=== PATIENT | male | born 1950 | race Caucasian/White ===

== ENCOUNTER 2017-11-22 13:33 | Emergency (ER) | payer OTHER, MEDICARE ==
[~2017-11-22] VITALS: Ht 188 cm; Wt 120.0 kg
[~2017-11-22 13:33] MED LIST: AMLODIPINE10 MG PO; BABY ASPIRIN81 MG PO; CLONIDINE0.2 MG PO; FISH OIL1000 MG PO; FLEXERIL PO; FLOMAX0.4 M1 PO; FLUZONE SPLT1 M1 IM; GLIPIZIDE10 M3 PO; GLYBURIDE2.5 MG PO; HYDROCHLOROT25 MG PO; LANTUS SOLOSTAR; LISINOPRIL20 MG PO; MELOXICAM7.5 MG PO; METFORMIN HCL1000 MG OR; METOPROL TAR100 MG PO; MULTIVITAMI1 OR; NITRO-DUR0.4 MG/HR; PRILOSEC20 MG PO; PROAIR HFA IN; SAW PALMETT4 OR
[2017-11-22] MEDS ORDERED: CEPHALEXIN500 M1 PO (14:51)
[2017-11-22 15:05] VITALS: BP 138/65
== END 2017-11-22 15:10 | disposition home or self-care (01) | DRG 605 ==
LOC: ED 13:33
PROC: 0HQFXZZ Repair Right Hand Skin, External Approach (ICD-10-PCS; principal; 2017-11-22)
DX: S61.011A Laceration without foreign body of right thumb without damage to nail, initial encounter (principal); E11.9 Type 2 diabetes mellitus without complications; I10 Essential (primary) hypertension; W26.0XXA Contact with knife, initial encounter; Y92.009 Unspecified place in unspecified non-institutional (private) residence as the place of occurrence of the external cause; Z95.1 Presence of aortocoronary bypass graft; Z85.9 Personal history of malignant neoplasm, unspecified; Z92.21 Personal history of antineoplastic chemotherapy

== ENCOUNTER 2018-09-03 13:41 | Emergency (ER) | payer OTHER, MEDICARE ==
[~2018-09-03] VITALS: Ht 188 cm; Wt 100.0 kg
[~2018-09-03 13:41] MED LIST changes: +CEPHALEXIN500 M1 PO
[2018-09-03 14:35] LABS: BUN 17 mg/dL (8-23); BUN/CREATININE RATIO 15 (12-20 (CALC)); CARBON DIOXIDE 27 mmol/l (22-30); CHLORIDE 108 mmol/l (95-108); CREATININE 1.1 mg/dL (0.7-1.3); GFR > 60 ML/MIN (>=60 (CALC)); GFR FOR AFR.AMER. > 60 ML/MIN (>=60 (CALC)); IMMATURE GRANULOCYTES 0.3 % (0.0-5.0); MEAN CORPUSCULAR HGB 27.5 pG CALC (26.0-32.0); NEUT# 7.48 thou/uL (1.82-7.42); RED BLOOD COUNT 3.78 mill/uL (4.70-6.10); SODIUM 145 mmol/l (137-146)
[2018-09-03 14:36] LABS: ANION GAP 13 (6-22 (CALC)); HEMATOCRIT 32.5 % (39.0-50.0); HEMOGLOBIN 10.4 g/dl (14.0-18.0); POTASSIUM 3.3 mmol/l (3.5-5.1)
[2018-09-03] MEDS ORDERED: LIPITOR20 MG PO (16:04)
[2018-09-03] MEDS ORDERED: B121000 MCG PO (16:05)
[2018-09-03] MEDS ORDERED: ASPIRIN81 MG PO (16:06)
[2018-09-03] MEDS ORDERED: SM ALLERGY50 MCG/ACT (16:08)
[2018-09-03] MEDS ORDERED: FUROSEMIDE20 MG PO (16:08)
[2018-09-03] MEDS ORDERED: GLIPIZIDE5 MG PO (16:10)
[2018-09-03] MEDS ORDERED: PANTOPRAZOLE SO40 MG PO (16:12)
[2018-09-03] MEDS ORDERED: PROAIR HFA108 MCG/AC (16:13)
[2018-09-03] MEDS ORDERED: TAMSULOSIN HCL0.4 MG PO (16:13)
[2018-09-03] MEDS ORDERED: TASIGNA200 MG PO (16:13)
[2018-09-03] MEDS ORDERED: KLOR-CON M1010 MEQ PO (16:13)
[2018-09-03 17:37] VITALS: BP 165/80
== END 2018-09-03 17:36 | disposition short-term general hospital (02) | DRG 186 ==
LOC: ED 13:41
PROVIDERS: Family Medicine
DX: J90 Pleural effusion, not elsewhere classified (principal); J18.1 Lobar pneumonia, unspecified organism; C95.90 Leukemia, unspecified not having achieved remission; E11.9 Type 2 diabetes mellitus without complications; I10 Essential (primary) hypertension

== ENCOUNTER 2018-10-15 14:52 | Emergency (ER) | payer OTHER, MEDICARE ==
[~2018-10-15] VITALS: Ht 188 cm; Wt 104.0 kg
[~2018-10-15 14:52] MED LIST changes: +ASPIRIN81 MG PO; +B121000 MCG PO; +FUROSEMIDE20 MG PO; +GLIPIZIDE5 MG PO; +KLOR-CON M1010 MEQ PO; +LIPITOR20 MG PO; +PANTOPRAZOLE SO40 MG PO; +PROAIR HFA108 MCG/AC; +SM ALLERGY50 MCG/ACT; +TAMSULOSIN HCL0.4 MG PO; +TASIGNA200 MG PO
[2018-10-15] MEDS ORDERED: KEFLEX500 M1 PO (16:20)
[2018-10-15 16:25] VITALS: BP 137/77
[2018-10-15] MEDS ORDERED: ALDACTONE25 MG PO (16:29)
[2018-10-15] MEDS ORDERED: LOPRESSOR25 M1 PO (16:30)
[2018-10-15] MEDS ORDERED: METFORMIN500 M2 PO (16:31)
[2018-10-15] MEDS ORDERED: GLIPIZIDE5 M2 PO (16:31)
[2018-10-15] MEDS ORDERED: ATORVASTATIN CA40 MG PO (16:32)
[2018-10-15] MEDS ORDERED: AMLODIPINE BESY10 MG PO (16:33)
== END 2018-10-15 16:25 | disposition home or self-care (01) | DRG 605 ==
LOC: ED 14:52
PROC: 0HQFXZZ Repair Right Hand Skin, External Approach (ICD-10-PCS; principal; 2018-10-15)
DX: S61.411A Laceration without foreign body of right hand, initial encounter (principal); W26.0XXA Contact with knife, initial encounter; Y93.89 Activity, other specified; Y92.009 Unspecified place in unspecified non-institutional (private) residence as the place of occurrence of the external cause

== ENCOUNTER 2019-06-20 10:56 | Observation (INO) | payer OTHER, MEDICARE ==
[~2019-06-20] VITALS: Ht 188 cm; Wt 112.0 kg
[~2019-06-20 10:56] MED LIST changes: +ALDACTONE25 MG PO; +AMLODIPINE BESY10 MG PO; +ATORVASTATIN CA40 MG PO; +GLIPIZIDE5 M2 PO; +KEFLEX500 M1 PO; +LOPRESSOR25 M1 PO; +METFORMIN500 M2 PO
--- NOTE | 2019-06-20 11:00 | NUR ---
PT BROUGHT BACK TO ER PER W/C
--- NOTE | 2019-06-20 11:17 | NUR ---
SECOND 0.3MG EPI GIVEN IM IN LEFT ARM PER ISAC CONKLIN AT BEDSIDE
[2019-06-20 11:37] LABS: HEMATOCRIT 33.8 % (39.0-50.0); HEMOGLOBIN 10.9 g/dl (14.0-18.0); IMMATURE GRANULOCYTES 0.7 % (0.0-5.0); MEAN CELL VOLUME 83.9 fL CALC (80.0-100.0); MEAN CORPUSCULAR HGB CONC 32.2 g/L CALC (32.0-36.0); NEUT# 9.21 thou/uL (1.82-7.42); RED BLOOD COUNT 4.03 mill/uL (4.70-6.10); RED CELL DISTRI WIDTH 15.9 % (11.5-15.5)
--- NOTE | 2019-06-20 11:38 | NUR ---
PT PROVIDED MEDS ORDERED FOR ALLERGIC REACTION, STATES THAT HE IS BEGINNING TO FEEL THEIR EFFECT. AT BEDSIDE.
[2019-06-20 11:50] LABS: ANION GAP 13 (6-22 (CALC)); BUN 32 mg/dL (8-23); BUN/CREATININE RATIO 28 (12-20 (CALC)); CARBON DIOXIDE 28 mmol/l (22-30); CHLORIDE 101 mmol/l (95-108); CREATININE 1.1 mg/dL (0.7-1.3); GFR > 60 ML/MIN (>=60 (CALC)); GFR FOR AFR.AMER. > 60 ML/MIN (>=60 (CALC)); POTASSIUM 3.8 mmol/l (3.5-5.1); SODIUM 139 mmol/l (137-146)
[2019-06-20] MEDS ORDERED: B121000 MCG PO (12:23)
[2019-06-20] MEDS ORDERED: FLOVENT HF110 MCG/AC IN (12:27)
[2019-06-20] MEDS ORDERED: MULTI VIT PO (12:32)
[2019-06-20] MEDS ORDERED: PROAIR HFA108 MCG/AC IN (12:34)
[2019-06-20] MEDS ORDERED: TORSEMIDE20 M1 PO (12:34)
[2019-06-20 12:50] VITALS: BP 182/100
--- NOTE | 2019-06-20 12:58 | NUR ---
SUBSEQUENT EKG ORDERED REVEAL ACUTE GA. EDP AWARE, TRANSFER PLANS IN PROGRESS.
--- NOTE | 2019-06-20 13:05 | NUR ---
AEROMED HERE TO TRANSPORT PT TO [facility] RENTAL COUNTER CLERK.
--- NOTE | 2019-06-20 13:21 | NUR ---
Transfer Information Transferred To: [facility] MACHINE BUILDER Report Given to: LEYLA Transported by: [facility] X Air Other Transported with: Nurse Transporter X Patent IV X O2 X Newswriter
== END 2019-06-20 13:10 | disposition short-term general hospital (02) | DRG 281 ==
LOC: ED 10:56 → ED-I 11:58 → ED 12:11 → ICU 12:12
PROVIDERS: Family Medicine; ADMIT Internal Medicine; ATTEND Internal Medicine
DX: I21.3 ST elevation (STEMI) myocardial infarction of unspecified site (principal); C95.90 Leukemia, unspecified not having achieved remission; T78.3XXA Angioneurotic edema, initial encounter; E11.9 Type 2 diabetes mellitus without complications; I11.0 Hypertensive heart disease with heart failure; I50.9 Heart failure, unspecified; Z95.1 Presence of aortocoronary bypass graft; Z79.84 Long term (current) use of oral hypoglycemic drugs; Z79.899 Other long term (current) drug therapy

== ENCOUNTER 2019-11-08 | Emergency (ER) | payer OTHER, MEDICARE ==
[~2019-11-08] MED LIST changes: +FLOVENT HF110 MCG/AC IN; +MULTI VIT PO; +PROAIR HFA108 MCG/AC IN; +TORSEMIDE20 M1 PO
[2019-11-08 20:04] LABS: HEMATOCRIT 34.7 % (39.0-50.0); HEMOGLOBIN 11.3 g/dl (14.0-18.0); IMMATURE GRANULOCYTES 0.3 % (0.0-5.0); MEAN CELL VOLUME 84.2 fL CALC (80.0-100.0); MEAN CORPUSCULAR HGB 27.4 pG CALC (26.0-32.0); MEAN CORPUSCULAR HGB CONC 32.6 g/L CALC (32.0-36.0); NEUT# 5.01 thou/uL (1.82-7.42); RED BLOOD COUNT 4.12 mill/uL (4.70-6.10); RED CELL DISTRI WIDTH 15.2 % (11.5-15.5)
[2019-11-08 20:37] LABS: ALBUMIN 4.6 g/dL (3.2-5.0); ALKALINE PHOSPHATASE 123 u/l (38-126); ANION GAP 19 (6-22 (CALC)); BILIRUBIN, TOTAL 0.3 mg/dL (0.0-1.4); BUN 30 mg/dL (8-23); BUN/CREATININE RATIO 21 (12-20 (CALC)); CARBON DIOXIDE 23 mmol/l (22-30); CHLORIDE 103 mmol/l (95-108); CREATININE 1.4 mg/dL (0.7-1.3); GFR 50 ML/MIN (>=60 (CALC)); GFR FOR AFR.AMER. 60 ML/MIN (>=60 (CALC)); POTASSIUM 4.3 mmol/l (3.5-5.1); SGOT/AST 24 u/l (19-48); SODIUM 141 mmol/l (137-146); TOTAL PROTEIN 7.6 g/dL (6.3-8.2)
[2019-11-08] MEDS ORDERED: COREG25 MG PO (20:39)
[2019-11-08] MEDS ORDERED: SYMBICORT 80-4.5MCG IN (20:39)
[2019-11-08] MEDS ORDERED: CETIRIZINE10 MG PO (20:40)
[2019-11-08] MEDS ORDERED: CLONIDINE0.1 MG PO (20:41)
[2019-11-08] MEDS ORDERED: JARDIANCE25 MG PO (20:42)
[2019-11-08] MEDS ORDERED: ALLERGY NA50 MCG/ACT NAB (20:43)
[2019-11-08] MEDS ORDERED: APRESOLINE25 MG/TAB PO (20:44)
[2019-11-08] MEDS ORDERED: MONTELUKAST SOD10 MG PO (20:45)
[2019-11-08 20:49] LABS: MYOGLOBIN 53 ng/mL (0 - 121)
[2019-11-08 21:08] LABS: URINE BILIRUBIN - DIPSTICK NEGATIVE (NEGATIVE); URINE BLOOD DIPSTICK NEGATIVE (NEGATIVE); URINE COLOR YELLOW; URINE GLUCOSE - DIPSTICK >=1000 mg/dL (NEGATIVE); URINE KETONE NEGATIVE (NEGATIVE); URINE LEUK ESTERASE NEGATIVE (NEGATIVE); URINE NITRITE - DIPSTICK NEGATIVE (Negative); URINE PROTEIN - DIPSTICK TRACE mg/dL (NEG-TRACE); URINE UROBILINOGEN - DIPSTICK 0.2 E.U./dL (0.2)
[2019-11-08] MEDS ORDERED: CODEINE/GUAIFEN1 SOL PO (22:10)
[2019-11-08] MEDS ORDERED: AUGMENTIN500TAB PO (22:10)
== END 2019-11-08 22:25 | disposition home or self-care (01) | DRG 202 ==
PROVIDERS: Emergency Medicine
DX: J20.9 Acute bronchitis, unspecified (principal); E87.2 Acidosis; I11.0 Hypertensive heart disease with heart failure; I50.9 Heart failure, unspecified; E11.9 Type 2 diabetes mellitus without complications; Z79.84 Long term (current) use of oral hypoglycemic drugs

== ENCOUNTER 2020-02-16 09:34 | Observation (INO) | payer OTHER, MEDICARE ==
[~2020-02-16] VITALS: Ht 182.9 cm; Wt 114.1 kg
[~2020-02-16 09:34] MED LIST changes: +ALLERGY NA50 MCG/ACT NAB; +APRESOLINE25 MG/TAB PO; +AUGMENTIN500TAB PO; +CETIRIZINE10 MG PO; +CLONIDINE0.1 MG PO; +CODEINE/GUAIFEN1 SOL PO; +COREG25 MG PO; +JARDIANCE25 MG PO; +MONTELUKAST SOD10 MG PO; +SYMBICORT 80-4.5MCG IN
[2020-02-16 10:54] LABS: PROTHROMBIN TIME 10.2 SECONDS (9.0-12.5)
[2020-02-16 10:56] LABS: LIPASE 115 u/l (23-300)
[2020-02-16] MEDS ORDERED: APRESOLINE25 MG/TAB PO (11:01)
[2020-02-16 11:06] LABS: ALBUMIN 4.2 g/dL (3.2-5.0); CREATININE 1.4 mg/dL (0.7-1.3); HEMATOCRIT 34.4 % (39.0-50.0); HEMOGLOBIN 10.7 g/dl (14.0-18.0); IMMATURE GRANULOCYTES 0.3 % (0.0-5.0); MEAN CELL VOLUME 81.1 fL CALC (80.0-100.0); MEAN CORPUSCULAR HGB 25.2 pG CALC (26.0-32.0); MEAN CORPUSCULAR HGB CONC 31.1 g/dL CAL (32.0-36.0); NEUT# 7.15 thou/uL (1.82-7.42); POTASSIUM 4.4 mmol/l (3.5-5.1); RED BLOOD COUNT 4.24 mill/uL (4.70-6.10); RED CELL DISTRI WIDTH 16.6 % (11.5-15.5); TOTAL PROTEIN 6.8 g/dL (6.3-8.2)
[2020-02-16 11:07] LABS: BILIRUBIN, TOTAL 0.5 mg/dL (0.0-1.4)
[2020-02-16] MEDS ORDERED: SPIRIVA HANDIH18 MCG PO (11:11)
[2020-02-16 11:31] LABS: URINE BILIRUBIN - DIPSTICK NEGATIVE (NEGATIVE); URINE BLOOD DIPSTICK NEGATIVE (NEGATIVE); URINE COLOR YELLOW; URINE GLUCOSE - DIPSTICK 500 mg/dL (NEGATIVE); URINE KETONE NEGATIVE (NEGATIVE); URINE LEUK ESTERASE NEGATIVE (NEGATIVE); URINE NITRITE - DIPSTICK NEGATIVE (Negative); URINE PROTEIN - DIPSTICK NEGATIVE (NEG-TRACE); URINE SPECIFIC GRAVITY 1.025; URINE UROBILINOGEN - DIPSTICK 0.2 E.U./dL (0.2)
[2020-02-16 14:30] VITALS: BP 138/65
[2020-02-16 17:32] VITALS: BP 158/76
[2020-02-16 20:17] VITALS: BP 164/71
[2020-02-17 00:15] VITALS: BP 164/77
[2020-02-17 00:22] VITALS: BP 158/72
[2020-02-17 04:40] VITALS: BP 150/68
[2020-02-17 05:36] LABS: HEMATOCRIT 34.9 % (39.0-50.0); HEMOGLOBIN 10.8 g/dl (14.0-18.0); IMMATURE GRANULOCYTES 0.3 % (0.0-5.0); MEAN CELL VOLUME 80.4 fL CALC (80.0-100.0); MEAN CORPUSCULAR HGB 24.9 pG CALC (26.0-32.0); MEAN CORPUSCULAR HGB CONC 30.9 g/dL CAL (32.0-36.0); NEUT# 6.48 thou/uL (1.82-7.42); RED BLOOD COUNT 4.34 mill/uL (4.70-6.10); RED CELL DISTRI WIDTH 16.4 % (11.5-15.5)
[2020-02-17 05:54] LABS: ALBUMIN 4.1 g/dL (3.2-5.0); ALKALINE PHOSPHATASE 123 u/l (38-126); ANION GAP 14 (6-22 (CALC)); BILIRUBIN, TOTAL 0.3 mg/dL (0.0-1.4); BUN 27 mg/dL (8-23); BUN/CREATININE RATIO 21 (12-20 (CALC)); CARBON DIOXIDE 26 mmol/l (22-30); CHLORIDE 103 mmol/l (95-108); CREATININE 1.3 mg/dL (0.7-1.3); GFR 54 ML/MIN (>=60 (CALC)); GFR FOR AFR.AMER. > 60 ML/MIN (>=60 (CALC)); POTASSIUM 3.9 mmol/l (3.5-5.1); SGOT/AST 19 u/l (19-48); SODIUM 138 mmol/l (137-146); TOTAL PROTEIN 6.7 g/dL (6.3-8.2)
[2020-02-17 08:11] VITALS: BP 143/76
[2020-02-17 10:59] VITALS: BP 160/86
[2020-02-17] MEDS ORDERED: LEVAQUIN750 MG PO (11:44)
[2020-02-17 15:27] VITALS: BP 142/80
== END 2020-02-17 16:07 | disposition home or self-care (01) | DRG 194 ==
LOC: ED 09:34 → ED-I 12:40 → ED 13:13 → ED-I 13:14 → MS2 13:14
PROVIDERS: Nurse Practitioner Family; ADMIT Internal Medicine; ATTEND Internal Medicine
DX: J18.9 Pneumonia, unspecified organism (principal); C95.90 Leukemia, unspecified not having achieved remission; E87.2 Acidosis; I11.0 Hypertensive heart disease with heart failure; I50.9 Heart failure, unspecified; E86.0 Dehydration; E11.9 Type 2 diabetes mellitus without complications; R00.1 Bradycardia, unspecified; Z79.899 Other long term (current) drug therapy; Z95.1 Presence of aortocoronary bypass graft; Z79.84 Long term (current) use of oral hypoglycemic drugs; Z20.828 Contact with and (suspected) exposure to other viral communicable diseases; Z99.81 Dependence on supplemental oxygen
CPT/HCPCS: G0378; Q9967

== ENCOUNTER 2020-11-06 15:02 | Emergency (ER) | payer OTHER, MEDICARE ==
[~2020-11-06] VITALS: Ht 182.9 cm; Wt 109.0 kg
[~2020-11-06 15:02] MED LIST changes: +LEVAQUIN750 MG PO; +SPIRIVA HANDIH18 MCG PO
[2020-11-06 15:48] LABS: HEMATOCRIT 40.1 % (39.0-50.0); HEMOGLOBIN 12.1 g/dl (14.0-18.0); IMMATURE GRANULOCYTES 0.3 % (0.0-5.0); MEAN CORPUSCULAR HGB 24.4 pG CALC (26.0-32.0); MEAN CORPUSCULAR HGB CONC 30.2 g/dL CAL (32.0-36.0); NEUT# 6.1 thou/uL (1.82-7.42); RED BLOOD COUNT 4.95 mill/uL (4.70-6.10); RED CELL DISTRI WIDTH 17.3 % (11.5-15.5)
[2020-11-06 16:09] LABS: ALBUMIN 4.6 g/dL (3.2-5.0); ALKALINE PHOSPHATASE 147 u/l (38-126); ANION GAP 18 (6-22 (CALC)); BUN 35 mg/dL (8-23); BUN/CREATININE RATIO 17 (12-20 (CALC)); CARBON DIOXIDE 24 mmol/l (22-30); CHLORIDE 101 mmol/l (95-108); GFR 33 ML/MIN (>=60 (CALC)); GFR FOR AFR.AMER. 40 ML/MIN (>=60 (CALC)); POTASSIUM 4.5 mmol/l (3.5-5.1); SGOT/AST 25 u/l (19-48); SODIUM 138 mmol/l (137-146); TOTAL PROTEIN 7.9 g/dL (6.3-8.2)
[2020-11-06 16:10] LABS: BILIRUBIN, TOTAL 0.6 mg/dL (0.0-1.4)
[2020-11-06 16:50] LABS: URINE BILIRUBIN - DIPSTICK NEGATIVE (NEGATIVE); URINE BLOOD DIPSTICK NEGATIVE (NEGATIVE); URINE COLOR YELLOW; URINE GLUCOSE - DIPSTICK >=1000 mg/dL (NEGATIVE); URINE KETONE NEGATIVE (NEGATIVE); URINE LEUK ESTERASE NEGATIVE (NEGATIVE); URINE NITRITE - DIPSTICK NEGATIVE (Negative); URINE PROTEIN - DIPSTICK NEGATIVE (NEG-TRACE); URINE SPECIFIC GRAVITY 1.015; URINE UROBILINOGEN - DIPSTICK 0.2 E.U./dL (0.2)
[2020-11-06 17:33] VITALS: BP 144/71
== END 2020-11-06 17:43 | disposition left against medical advice (07) | DRG 309 ==
LOC: ED 15:02
PROVIDERS: Family Medicine
DX: R00.2 Palpitations (principal); R94.31 Abnormal electrocardiogram [ECG] [EKG]; R07.9 Chest pain, unspecified; R06.02 Shortness of breath; C95.91 Leukemia, unspecified, in remission; E11.9 Type 2 diabetes mellitus without complications; I10 Essential (primary) hypertension; Z91.19 Patient's noncompliance with other medical treatment and regimen; Z85.51 Personal history of malignant neoplasm of bladder; Z79.84 Long term (current) use of oral hypoglycemic drugs; Z20.822 Contact with and (suspected) exposure to COVID-19

== ENCOUNTER 2020-11-17 09:36 | Emergency (ER) | payer OTHER, MEDICARE ==
[~2020-11-17] VITALS: Ht 182.9 cm; Wt 104.0 kg
[2020-11-17 10:33] LABS: HEMATOCRIT 36.2 % (39.0-50.0); HEMOGLOBIN 11.1 g/dl (14.0-18.0); IMMATURE GRANULOCYTES 0.3 % (0.0-5.0); MEAN CELL VOLUME 80.8 fL CALC (80.0-100.0); MEAN CORPUSCULAR HGB 24.8 pG CALC (26.0-32.0); MEAN CORPUSCULAR HGB CONC 30.7 g/dL CAL (32.0-36.0); NEUT# 8.54 thou/uL (1.82-7.42); RED BLOOD COUNT 4.48 mill/uL (4.70-6.10); RED CELL DISTRI WIDTH 17.1 % (11.5-15.5)
[2020-11-17 10:49] LABS: ALBUMIN 4.4 g/dL (3.2-5.0); ALKALINE PHOSPHATASE 123 u/l (38-126); ANION GAP 13 (6-22 (CALC)); BILIRUBIN, TOTAL 0.7 mg/dL (0.0-1.4); BUN 27 mg/dL (8-23); BUN/CREATININE RATIO 18 (12-20 (CALC)); CARBON DIOXIDE 26 mmol/l (22-30); CHLORIDE 105 mmol/l (95-108); CREATININE 1.5 mg/dL (0.7-1.3); GFR 46 ML/MIN (>=60 (CALC)); GFR FOR AFR.AMER. 56 ML/MIN (>=60 (CALC)); POTASSIUM 4.1 mmol/l (3.5-5.1); SGOT/AST 27 u/l (19-48); SODIUM 140 mmol/l (137-146); TOTAL PROTEIN 7.4 g/dL (6.3-8.2)
[2020-11-17] MEDS ORDERED: ZITHROMAX250 MG PO (12:16)
[2020-11-17 12:39] LABS: URINE BILIRUBIN - DIPSTICK NEGATIVE (NEGATIVE); URINE BLOOD DIPSTICK NEGATIVE (NEGATIVE); URINE COLOR YELLOW; URINE GLUCOSE - DIPSTICK >=1000 mg/dL (NEGATIVE); URINE KETONE NEGATIVE (NEGATIVE); URINE LEUK ESTERASE NEGATIVE (NEGATIVE); URINE NITRITE - DIPSTICK NEGATIVE (Negative); URINE PH 5.5 (4.5-8.0); URINE PROTEIN - DIPSTICK NEGATIVE (NEG-TRACE); URINE SPECIFIC GRAVITY 1.015; URINE UROBILINOGEN - DIPSTICK 0.2 E.U./dL (0.2)
[2020-11-17 14:12] VITALS: BP 154/73
== END 2020-11-17 14:13 | disposition home or self-care (01) | DRG 308 ==
LOC: ED 09:36
PROVIDERS: Emergency Medicine
DX: I49.3 Ventricular premature depolarization (principal); J18.9 Pneumonia, unspecified organism; C95.91 Leukemia, unspecified, in remission; E11.9 Type 2 diabetes mellitus without complications; I10 Essential (primary) hypertension; E78.00 Pure hypercholesterolemia, unspecified; Z85.51 Personal history of malignant neoplasm of bladder; Z79.84 Long term (current) use of oral hypoglycemic drugs; Z20.822 Contact with and (suspected) exposure to COVID-19

== ENCOUNTER 2021-07-21 06:36 | Emergency (ER) | payer OTHER, MEDICARE ==
[~2021-07-21] VITALS: Ht 182.9 cm; Wt 114.0 kg
[~2021-07-21 06:36] MED LIST changes: +ZITHROMAX250 MG PO
[2021-07-21] MEDS ORDERED: ISORDIL10 MG PO (07:09)
[2021-07-21 08:33] LABS: IMMATURE GRANULOCYTES 0.2 % (0.0-5.0); MEAN CORPUSCULAR HGB 27.9 pG CALC (26.0-32.0); MEAN CORPUSCULAR HGB CONC 31.7 g/dL CAL (32.0-36.0); NEUT# 8.93 thou/uL (1.82-7.42); RED BLOOD COUNT 5.26 mill/uL (4.70-6.10); RED CELL DISTRI WIDTH 15.1 % (11.5-15.5)
[2021-07-21 08:37] LABS: HEMATOCRIT 46.3 % (39.0-50.0); HEMOGLOBIN 14.7 g/dl (14.0-18.0)
[2021-07-21 08:41] LABS: ALBUMIN 4.3 g/dL (3.2-5.0); BILIRUBIN, TOTAL 0.5 mg/dL (0.0-1.4); CREATININE 1.5 mg/dL (0.7-1.3); POTASSIUM 3.9 mmol/l (3.5-5.1); TOTAL PROTEIN 7.5 g/dL (6.3-8.2)
[2021-07-21] MEDS ORDERED: DECADRON4 M1 PO (11:51)
[2021-07-21 12:36] VITALS: BP 161/82
== END 2021-07-21 12:38 | disposition home or self-care (01) | DRG 916 ==
LOC: ED 06:36
PROVIDERS: Family Medicine
DX: T78.3XXA Angioneurotic edema, initial encounter (principal); C95.91 Leukemia, unspecified, in remission; E11.9 Type 2 diabetes mellitus without complications; I10 Essential (primary) hypertension; E78.00 Pure hypercholesterolemia, unspecified; Z85.51 Personal history of malignant neoplasm of bladder; Z79.84 Long term (current) use of oral hypoglycemic drugs

== ENCOUNTER 2021-10-16 11:12 | Emergency (ER) | payer OTHER, MEDICARE ==
[~2021-10-16] VITALS: Ht 182.9 cm; Wt 111.0 kg
[~2021-10-16 11:12] MED LIST changes: +DECADRON4 M1 PO; +ISORDIL10 MG PO
[2021-10-16] MEDS ORDERED: ULTRAM50 M1 PO (14:38)
[2021-10-16] MEDS ORDERED: CYCLOBENZAPRINE10 MG PO (14:38)
[2021-10-16 15:24] VITALS: BP 178/74
== END 2021-10-16 15:24 | disposition home or self-care (01) | DRG 552 ==
LOC: ED 11:12
DX: M47.26 Other spondylosis with radiculopathy, lumbar region (principal); C95.91 Leukemia, unspecified, in remission; E11.9 Type 2 diabetes mellitus without complications; I10 Essential (primary) hypertension; E78.00 Pure hypercholesterolemia, unspecified; Z85.51 Personal history of malignant neoplasm of bladder; Z79.84 Long term (current) use of oral hypoglycemic drugs

== ENCOUNTER 2021-12-04 13:14 | Emergency (ER) | payer OTHER, MEDICARE ==
[~2021-12-04] VITALS: Ht 182.9 cm; Wt 110.0 kg
[2021-12-04] VITALS (8 sets, daily range): BP systolic 132–167; BP diastolic 62–89
[~2021-12-04 13:14] MED LIST changes: +CYCLOBENZAPRINE10 MG PO; +ULTRAM50 M1 PO
[2021-12-04 14:06] LABS: HEMATOCRIT 44.1 % (39.0-50.0); HEMOGLOBIN 14.2 g/dl (14.0-18.0); IMMATURE GRANULOCYTES 0.2 % (0.0-5.0); MEAN CELL VOLUME 89.3 fL CALC (80.0-100.0); MEAN CORPUSCULAR HGB 28.7 pG CALC (26.0-32.0); MEAN CORPUSCULAR HGB CONC 32.2 g/dL CAL (32.0-36.0); NEUT# 5.49 thou/uL (1.82-7.42); RED BLOOD COUNT 4.94 mill/uL (4.70-6.10); RED CELL DISTRI WIDTH 13.5 % (11.5-15.5)
[2021-12-04 14:18] LABS: ALBUMIN 3.8 g/dL (3.2-5.0); ALKALINE PHOSPHATASE 131 u/l (38-126); ANION GAP 14 (6-22 (CALC)); BILIRUBIN, TOTAL 0.3 mg/dL (0.0-1.4); BUN 33 mg/dL (8-23); BUN/CREATININE RATIO 26 (12-20 (CALC)); CARBON DIOXIDE 26 mmol/l (22-30); CHLORIDE 102 mmol/l (95-108); CREATININE 1.3 mg/dL (0.7-1.3); GFR 54 ML/MIN (>=60 (CALC)); GFR FOR AFR.AMER. > 60 ML/MIN (>=60 (CALC)); SGOT/AST 18 u/l (19-48); SODIUM 137 mmol/l (137-146); TOTAL PROTEIN 6.5 g/dL (6.3-8.2)
[2021-12-04 14:19] LABS: POTASSIUM 4.7 mmol/l (3.5-5.1)
[2021-12-04] MEDS ORDERED: LASIX 20 MG TAB20 MG PO (16:27)
== END 2021-12-04 16:55 | disposition home or self-care (01) | DRG 292 ==
LOC: ED 13:14
PROVIDERS: Family Medicine
DX: I11.0 Hypertensive heart disease with heart failure (principal); C95.91 Leukemia, unspecified, in remission; I50.9 Heart failure, unspecified; E11.9 Type 2 diabetes mellitus without complications; E78.00 Pure hypercholesterolemia, unspecified; Z95.1 Presence of aortocoronary bypass graft; Z85.51 Personal history of malignant neoplasm of bladder; Z20.822 Contact with and (suspected) exposure to COVID-19

== ENCOUNTER 2021-12-20 10:15 | Observation (INO) | payer OTHER, MEDICARE ==
[~2021-12-20] VITALS: Ht 182.9 cm; Wt 110.0 kg
[2021-12-20] VITALS (8 sets, daily range): BP systolic 134–162; BP diastolic 62–87
[~2021-12-20 10:15] MED LIST changes: +LASIX 20 MG TAB20 MG PO
[2021-12-20 10:35] LABS: HEMATOCRIT 42.6 % (39.0-50.0); HEMOGLOBIN 13.9 g/dl (14.0-18.0); IMMATURE GRANULOCYTES 0.2 % (0.0-5.0); MEAN CELL VOLUME 89.9 fL CALC (80.0-100.0); MEAN CORPUSCULAR HGB 29.3 pG CALC (26.0-32.0); MEAN CORPUSCULAR HGB CONC 32.6 g/dL CAL (32.0-36.0); NEUT# 7.21 thou/uL (1.82-7.42); RED BLOOD COUNT 4.74 mill/uL (4.70-6.10); RED CELL DISTRI WIDTH 13.2 % (11.5-15.5)
[2021-12-20 10:49] LABS: ALBUMIN 4.2 g/dL (3.2-5.0); ALKALINE PHOSPHATASE 122 u/l (38-126); ANION GAP 13 (6-22 (CALC)); BUN 27 mg/dL (8-23); BUN/CREATININE RATIO 21 (12-20 (CALC)); CARBON DIOXIDE 30 mmol/l (22-30); CHLORIDE 101 mmol/l (95-108); CREATININE 1.3 mg/dL (0.7-1.3); GFR 54 ML/MIN (>=60 (CALC)); GFR FOR AFR.AMER. > 60 ML/MIN (>=60 (CALC)); POTASSIUM 4.1 mmol/l (3.5-5.1); SGOT/AST 25 u/l (19-48); SODIUM 140 mmol/l (137-146); TOTAL PROTEIN 7.4 g/dL (6.3-8.2)
[2021-12-20 10:52] LABS: BILIRUBIN, TOTAL 0.5 mg/dL (0.0-1.4)
[2021-12-21 00:30] VITALS: BP 142/71
[2021-12-21 05:12] LABS: HEMATOCRIT 46.5 % (39.0-50.0); HEMOGLOBIN 15.4 g/dl (14.0-18.0); IMMATURE GRANULOCYTES 0.1 % (0.0-5.0); MEAN CELL VOLUME 88.7 fL CALC (80.0-100.0); MEAN CORPUSCULAR HGB 29.4 pG CALC (26.0-32.0); MEAN CORPUSCULAR HGB CONC 33.1 g/dL CAL (32.0-36.0); NEUT# 6.07 thou/uL (1.82-7.42); RED BLOOD COUNT 5.24 mill/uL (4.70-6.10); RED CELL DISTRI WIDTH 13.2 % (11.5-15.5)
[2021-12-21 05:19] VITALS: BP 146/59
[2021-12-21 05:26] LABS: ANION GAP 15 (6-22 (CALC)); BUN 26 mg/dL (8-23); BUN/CREATININE RATIO 23 (12-20 (CALC)); CARBON DIOXIDE 25 mmol/l (22-30); CHLORIDE 103 mmol/l (95-108); CREATININE 1.2 mg/dL (0.7-1.3); GFR 59 ML/MIN (>=60 (CALC)); GFR FOR AFR.AMER. > 60 ML/MIN (>=60 (CALC)); POTASSIUM 4.5 mmol/l (3.5-5.1); SODIUM 140 mmol/l (137-146)
[2021-12-21 08:00] VITALS: BP 166/80
[2021-12-21] MEDS ORDERED: AZITHROMYCIN500 MG PO (10:22)
[2021-12-21] MEDS ORDERED: MECLIZINE25 MG PO (10:24)
[2021-12-21 10:26] VITALS: BP 143/64
== END 2021-12-21 12:22 | disposition home or self-care (01) | DRG 194 ==
LOC: ED 10:15 → ED-I 11:01 → ED 11:47 → MS2 11:48
PROVIDERS: Family Medicine; Nurse Practitioner; ADMIT Internal Medicine; ATTEND Internal Medicine
DX: J18.9 Pneumonia, unspecified organism (principal); C92.00 Acute myeloblastic leukemia, not having achieved remission; R55 Syncope and collapse; R42 Dizziness and giddiness; I11.0 Hypertensive heart disease with heart failure; I50.9 Heart failure, unspecified; E11.9 Type 2 diabetes mellitus without complications; E78.00 Pure hypercholesterolemia, unspecified; Z85.51 Personal history of malignant neoplasm of bladder; Z79.84 Long term (current) use of oral hypoglycemic drugs; Z95.1 Presence of aortocoronary bypass graft; Z20.822 Contact with and (suspected) exposure to COVID-19
CPT/HCPCS: J1650

== ENCOUNTER 2022-03-26 13:30 | Emergency (ER) | payer OTHER, MEDICARE ==
[~2022-03-26] VITALS: Ht 182.9 cm; Wt 118.0 kg
[~2022-03-26 13:30] MED LIST changes: +AZITHROMYCIN500 MG PO; +MECLIZINE25 MG PO
[2022-03-26] MEDS ORDERED: AMOX/K CLAV875 M1 PO (14:21)
[2022-03-26 14:31] VITALS: BP 144/67
[2022-03-26 15:04] VITALS: BP 144/67
== END 2022-03-26 15:15 | disposition home or self-care (01) | DRG 605 ==
LOC: ED 13:30
DX: S61.451A Open bite of right hand, initial encounter (principal); I11.0 Hypertensive heart disease with heart failure; I50.9 Heart failure, unspecified; E11.9 Type 2 diabetes mellitus without complications; E78.00 Pure hypercholesterolemia, unspecified; Z79.84 Long term (current) use of oral hypoglycemic drugs; W54.0XXA Bitten by dog, initial encounter; Y93.89 Activity, other specified; Y92.830 Public park as the place of occurrence of the external cause

== ENCOUNTER 2022-04-14 10:08 | Observation (INO) | payer OTHER, MEDICARE ==
[2022-04-14] VITALS (17 sets, daily range): BP systolic 98–170; BP diastolic 62–102
[~2022-04-14] VITALS: Ht 182.9 cm; Wt 124.0 kg
[~2022-04-14 10:08] MED LIST changes: -AMLODIPINE BESY10 MG PO; +AMOX/K CLAV875 M1 PO; -GLIPIZIDE5 M2 PO; +NORVASC PO
--- NOTE | 2022-04-14 10:08 | NUR ---
PT TO ROOM VIA WC FROM HOME
[2022-04-14 10:39] LABS: HEMATOCRIT 36.6 % (39.0-50.0); HEMOGLOBIN 11.6 g/dl (14.0-18.0); IMMATURE GRANULOCYTES 0.1 % (0.0-5.0); MEAN CELL VOLUME 99.5 fL CALC (80.0-100.0); MEAN CORPUSCULAR HGB 31.5 pG CALC (26.0-32.0); MEAN CORPUSCULAR HGB CONC 31.7 g/dL CAL (32.0-36.0); NEUT# 5.26 thou/uL (1.82-7.42); RED BLOOD COUNT 3.68 mill/uL (4.70-6.10); RED CELL DISTRI WIDTH 14.9 % (11.5-15.5)
[2022-04-14 10:49] LABS: ALKALINE PHOSPHATASE 99 u/l (38-126); ANION GAP 9 (6-22 (CALC)); BUN 29 mg/dL (8-23); BUN/CREATININE RATIO 16 (12-20 (CALC)); CARBON DIOXIDE 30 mmol/l (22-30); CHLORIDE 106 mmol/l (95-108); CREATININE 1.8 mg/dL (0.7-1.3); GFR FOR AFR.AMER. 45 ML/MIN (>=60 (CALC)); GFR OTHER RACES 37 ML/MIN (>=60 (CALC)); POTASSIUM 4.2 mmol/l (3.5-5.1); SGOT/AST 25 u/l (19-48); SODIUM 141 mmol/l (137-146); TOTAL PROTEIN 6.5 g/dL (6.3-8.2)
[2022-04-14 10:51] LABS: BILIRUBIN, TOTAL 0.4 mg/dL (0.0-1.4)
--- NOTE | 2022-04-14 11:00 | NUR ---
Reassessment of patient completed. No distress noted.
--- NOTE | 2022-04-14 12:00 | NUR ---
Reassessment of patient completed. No distress noted.
--- NOTE | 2022-04-14 13:00 | NUR ---
Reassessment of patient completed. No distress noted.
--- NOTE | 2022-04-14 14:00 | NUR ---
Reassessment of patient completed. No distress noted.
--- NOTE | 2022-04-14 15:00 | NUR ---
Reassessment of patient completed. No distress noted.
--- NOTE | 2022-04-14 15:28 | NUR ---
PT ARRIVED FROM ED ACCOMPANIED BY MARI DALTON. PT A&O X3. NO DISTRESS NOTED. REPORTS IMPROVEMENT IN SYSMPTOMS. STANDING WEIGHT OBTAINED. CLEAR BREATH SOUNDS UPON AUSCULTATION. ACTIVE BOWEL SOUNDS X4 QUADRANTS. ABD DISTENDED AND FIRM; PT REPORTS LAST BM 04/13. PT A DIABETIC; TURKEY SANDWICH PROVIDED DUE TO LOW BLOOD SUGAR PT ASYMPTOMATIC, JUICE ALSO PROVIDED. +1 EDEMA NOTED TO BLE. PT HAS DRESSING TO LT BIG TOE; REPORTS "NAIL FALLS OFF AND REGROWS", DRESSING REMOVED UPON PTS REQUEST FOR INSPECTION, TOE NOTED TO BE SLIGHTLY RED IN APPEARANCE, PT DENIES ANY DRAINAGE. LEFT TIRE SPECIALIST. SEE CHART FOR PHOTO. IV HEALTHY AND PATENT. GATE MANAGER IN PLACE. ASSESSMENT COMPLETED. ORIENTED PT TO ROOM. CALL LIGHT WITHIN REACH.
--- NOTE | 2022-04-14 15:37 | NUR ---
REPORT GIVEN TO SHA PURDY ON MED SURG. PATIENT AMBULATED TO BED. NAD NOTED.
--- NOTE | 2022-04-14 20:00 | NUR ---
PATIENT SITTING UP IN BED AT THIS TIME-AWAKE ALERT AND ORIENTEDX3. PATIENT DENIES ANY CHEST PAIN AT THIS TIME BUT IS C/O FEELING BLOATED AND HAVING ABD DISCOMFORT FROM IT. TELE MONITOR IN PLACE. SALINE LOCK TO RAC INTACT AND HEALTHY AT THIS TIME WITH GOOD BLOOD RETURN. LUNGS DIMINISHED IN THE BASES OTHERWISE CLEAR. ABD IS BLOATED/DISTENDED WITH ACTIVE BS. STATES THAT HE HAD BM YESTERDAY. VOIDING CLEAR YELLOW URINE IN URINAL. PATIENT WITH WOUND TO GREAT TOE ON LEFT FOOT-SECURITY INTERN AT THIS TIME. PATIENT STATES THAT HE HAS BEEN KEEPING A N EYE ON IT-ENCOURAGED PATIENT TO SEE ENGINEER TECHNICIAN EMERITA SINCE HE IS DIAB WITH PERIPHERAL NEUROPATHY AND LIMITED FEELING IN HIS FEET. PULSES ARE PALPABLE. SAFETY PRECAUTIONS REINFORCED. CALL LIGHT IN REACH. WILL CONT TO MONITOR.
--- NOTE | 2022-04-14 21:30 | NUR ---
GLUCOSE METER WAS 135-NO HUMALOG COVERAGE REQUIRED. HS SNACK PROVIDED. LEFT GREAT TOE WAS CLEANED WITH SALINE AND BANDAID APPLIED TO TOE. CALL LIGHT IN REACH. WILL CONT TO MONITOR.
[2022-04-15] VITALS: BP 128/63
--- NOTE | 2022-04-15 | NUR ---
PATIENT POSITIONED ON LEFT SIDE-EYES ARE CLOSED AND RESPS ARE EVEN AND UNLABORED. TELE MONITOR IN PLACE-LAST READING WAS SR-75 WITH PVC'S. SALINE LOCK TO RAC INTACT. CALL LIGHT IN REACH. WILL CONT TO MONITOR.
[2022-04-15 01:22] LABS: CHOLESTEROL HDL RATIO 3.9 (<4.4 (CALC)); MAGNESIUM 2.1 mg/dL (1.6-2.3)
--- NOTE | 2022-04-15 03:56 | NUR ---
PATIENT CONT TO REST IN BED-POSITIONED ON LEFT SIDE WITH EYES CLOSED AND RESPS ARE EVEN AND UNLABORED. TELE MONITOR IN PLACE. CALL LIGHT IN REACH. WILL CONT TO MONITOR.
[2022-04-15 04:28] VITALS: BP 112/48
[2022-04-15 05:03] VITALS: BP 112/48
--- NOTE | 2022-04-15 06:25 | NUR ---
NURSE NOTIFED ABOUT SUGAR.
--- NOTE | 2022-04-15 06:25 | NUR ---
nurse notified of patient glucose level was 59. will recheck.
[2022-04-15 06:30] VITALS: BP 138/63
--- NOTE | 2022-04-15 06:50 | NUR ---
RECEIVED REPORT FROM [email or web address].SHA.
--- NOTE | 2022-04-15 08:10 | NUR ---
PT IN BED: A&O X3. EVEN AND UNLABORED RESPIRATIONS ON ROWDY. TELEMETRY IN PLACE. IV SITE HEALTHY AND PATENT. ACTIVE BOWEL SOUNDS X4 QUADRANTS. ABDOMEN DISTENDED. SAFETY PRECAUTIONS IN PLACE WITH CALL LIGHT IN REACH.
--- NOTE | 2022-04-15 10:05 | NUR ---
PHARMACY AT THE BEDSIDE
[2022-04-15 10:32] VITALS: BP 140/68
[2022-04-15] MEDS ORDERED: CETIRIZINE5 MG PO (11:37)
[2022-04-15] MEDS ORDERED: WEGOVY SC (11:39)
[2022-04-15] MEDS ORDERED: SPIRIVA RE1.25 MCG/A IN (11:40)
[2022-04-15] MEDS ORDERED: SOAANZ20 MG PO (11:43)
[2022-04-15] MEDS ORDERED: INSULIN GLAR100 UNIT SC (11:48)
[2022-04-15] MEDS ORDERED: ISORDIL10 MG PO (11:50)
[2022-04-15] MEDS ORDERED: MECLIZINE12.5 M1 PO (11:51)
[2022-04-15] MEDS ORDERED: IMATINIB MESYL400 MG PO (11:54)
[2022-04-15] MEDS ORDERED: EPINEPHRIN0.3 MG/0.3 IM (11:55)
--- NOTE | 2022-04-15 12:00 | NUR ---
PT SITTING ON SIDE OF BED. SCHEDULED ANTIBIOTIC INFUSING PER ORDER. NO DISTRESS OR PAIN NOTED. BANDAID APPLIED ON LEFT GREAT TOE, PER PT'S REQUEST. SAFETY PRECAUTIONS IN PLACE WITH CALL LIGHT IN REACH.
[2022-04-15] MEDS ORDERED: RANOLAZINE ER500 MG PO (12:04)
[2022-04-15] MEDS ORDERED: VENTOLIN HFA108 MCG IN (12:05)
[2022-04-15] MEDS ORDERED: LASIX 40 MG TAB40 MG PO (13:56)
[2022-04-15] MEDS ORDERED: KEFLEX500 MG PO (14:53)
--- NOTE | 2022-04-15 15:06 | NUR ---
pt educated on dc instructions: pt showed understanding. IV removed #20 G right AC, catheter intact upon removal, pt tolerated well. Telemetry removed, ER notified of same.
--- NOTE | 2022-04-15 15:24 | NUR ---
pt left @1524. Discharge instructions given. Patient verbalizes understanding of same. Discharged in stable condition via Wheelchair to Home with staff. All belongings sent with pt.
== END 2022-04-15 15:24 | disposition home or self-care (01) | DRG 292 ==
LOC: ED 10:08 → ED-I 12:05 → ED 13:31 → MS2 13:32
PROVIDERS: Family Medicine; ADMIT Internal Medicine; ATTEND Internal Medicine
DX: I11.0 Hypertensive heart disease with heart failure (principal); C95.90 Leukemia, unspecified not having achieved remission; I50.9 Heart failure, unspecified; L03.032 Cellulitis of left toe; S91.202A Unspecified open wound of left great toe with damage to nail, initial encounter; E11.9 Type 2 diabetes mellitus without complications; I25.10 Atherosclerotic heart disease of native coronary artery without angina pectoris; X58.XXXA Exposure to other specified factors, initial encounter; Z85.51 Personal history of malignant neoplasm of bladder; Z79.84 Long term (current) use of oral hypoglycemic drugs; Z95.1 Presence of aortocoronary bypass graft; Z20.822 Contact with and (suspected) exposure to COVID-19
CPT/HCPCS: J1650

== ENCOUNTER 2023-02-26 12:49 | Observation (INO) | payer OTHER, MEDICARE ==
[~2023-02-26] VITALS: Ht 182.9 cm; Wt 116.0 kg
[~2023-02-26 12:49] MED LIST changes: +CETIRIZINE5 MG PO; +EPINEPHRIN0.3 MG/0.3 IM; +IMATINIB MESYL400 MG PO; +INSULIN GLAR100 UNIT SC; +KEFLEX500 MG PO; +LASIX 40 MG TAB40 MG PO; +MECLIZINE12.5 M1 PO; +RANOLAZINE ER500 MG PO; +SOAANZ20 MG PO; +SPIRIVA RE1.25 MCG/A IN; +VENTOLIN HFA108 MCG IN; +WEGOVY SC
[2023-02-26 13:14] LABS: BASO% 0.2 % (0-3); EOS% 0.4 % (0-8); HEMATOCRIT 31.3 % (39.0-50.0); HEMOGLOBIN 10.2 g/dl (14.0-18.0); IMMATURE GRANULOCYTES 0.1 % (0.0-5.0); LYMPH% 11.2 % (15-41); MEAN CORPUSCULAR HGB 30.6 pG CALC (26.0-32.0); MEAN CORPUSCULAR HGB CONC 32.6 g/dL CAL (32.0-36.0); MONO% 6.8 % (2-13); NEUT# 10.82 thou/uL (1.82-7.42); NEUT% 81.3 % (42-76); RED BLOOD COUNT 3.33 mill/uL (4.70-6.10); RED CELL DISTRI WIDTH 14.6 % (11.5-15.5)
[2023-02-26 13:27] LABS: ALBUMIN 3.7 g/dL (3.2-5.0); BILIRUBIN, TOTAL 0.9 mg/dL (0.2-1.3); CREATININE 2.2 mg/dL (0.7-1.3); POTASSIUM 3.8 mmol/l (3.5-5.1); TOTAL PROTEIN 6.4 g/dL (6.3-8.2)
[2023-02-26] MEDS ORDERED: OZEMPIC2 MG SC (15:06)
[2023-02-26 15:59] LABS: URINE BILIRUBIN - DIPSTICK NEGATIVE (NEGATIVE); URINE BLOOD DIPSTICK NEGATIVE (NEGATIVE); URINE COLOR YELLOW; URINE GLUCOSE - DIPSTICK NEGATIVE (NEGATIVE); URINE KETONE NEGATIVE (NEGATIVE); URINE LEUK ESTERASE NEGATIVE (NEGATIVE); URINE PH 5.5 (4.5-8.0); URINE PROTEIN - DIPSTICK TRACE mg/dL (NEG-TRACE); URINE UROBILINOGEN - DIPSTICK 0.2 E.U./dL (0.2)
[2023-02-26 16:00] LABS: URINE NITRITE - DIPSTICK NEGATIVE (Negative)
[2023-02-26 16:07] VITALS: BP 112/58
[2023-02-26 19:07] VITALS: BP 116/45
[2023-02-26 23:55] VITALS: BP 100/57
[2023-02-26 23:58] VITALS: BP 166/86
[2023-02-27] VITALS (9 sets, daily range): BP systolic 117–144; BP diastolic 46–76
[2023-02-27 05:55] LABS: BASO% 0.1 % (0-3); EOS% 1.5 % (0-8); HEMATOCRIT 32.7 % (39.0-50.0); HEMOGLOBIN 10.7 g/dl (14.0-18.0); IMMATURE GRANULOCYTES 0.1 % (0.0-5.0); LYMPH% 17.8 % (15-41); MEAN CELL VOLUME 93.4 fL CALC (80.0-100.0); MEAN CORPUSCULAR HGB 30.6 pG CALC (26.0-32.0); MEAN CORPUSCULAR HGB CONC 32.7 g/dL CAL (32.0-36.0); MONO% 8.7 % (2-13); NEUT# 6.96 thou/uL (1.82-7.42); NEUT% 71.8 % (42-76); RED BLOOD COUNT 3.5 mill/uL (4.70-6.10); RED CELL DISTRI WIDTH 14.5 % (11.5-15.5)
[2023-02-27 06:01] LABS: ALBUMIN 3.2 g/dL (3.2-5.0); CREATININE 1.9 mg/dL (0.7-1.3); POTASSIUM 3.5 mmol/l (3.5-5.1); TOTAL PROTEIN 5.5 g/dL (6.3-8.2)
[2023-02-27 06:04] LABS: BILIRUBIN, TOTAL 0.4 mg/dL (0.2-1.3)
[2023-02-28 04:03] VITALS: BP 128/59
[2023-02-28 04:18] VITALS: BP 128/59
[2023-02-28 06:06] LABS: BASO% 0.2 % (0-3); EOS% 2.6 % (0-8); HEMATOCRIT 29.6 % (39.0-50.0); HEMOGLOBIN 9.7 g/dl (14.0-18.0); IMMATURE GRANULOCYTES 0.1 % (0.0-5.0); LYMPH% 20.9 % (15-41); MEAN CELL VOLUME 93.1 fL CALC (80.0-100.0); MEAN CORPUSCULAR HGB 30.5 pG CALC (26.0-32.0); MEAN CORPUSCULAR HGB CONC 32.8 g/dL CAL (32.0-36.0); MONO% 8.3 % (2-13); NEUT# 5.48 thou/uL (1.82-7.42); NEUT% 67.9 % (42-76); RED BLOOD COUNT 3.18 mill/uL (4.70-6.10); RED CELL DISTRI WIDTH 14.4 % (11.5-15.5)
[2023-02-28 06:15] LABS: ALBUMIN 2.9 g/dL (3.2-5.0); CREATININE 1.4 mg/dL (0.7-1.3); POTASSIUM 3.4 mmol/l (3.5-5.1)
[2023-02-28 06:16] LABS: BILIRUBIN, TOTAL 0.2 mg/dL (0.2-1.3)
[2023-02-28 07:00] VITALS: BP 100/60
[2023-02-28 07:56] VITALS: BP 145/76
[2023-02-28] MEDS ORDERED: DOXYCYCLINE100 MG PO (10:22)
[2023-02-28 10:54] VITALS: BP 130/54
== END 2023-02-28 13:40 | DRG 683 ==
LOC: ED 12:49 → MS2 14:16
PROVIDERS: Nurse Practitioner; Nurse Practitioner Family; ADMIT Internal Medicine; ATTEND Internal Medicine
DX: N17.9 Acute kidney failure, unspecified (principal); T25.222A Burn of second degree of left foot, initial encounter; T25.221A Burn of second degree of right foot, initial encounter; C95.90 Leukemia, unspecified not having achieved remission; I13.0 Hypertensive heart and chronic kidney disease with heart failure and stage 1 through stage 4 chronic kidney disease, or unspecified chronic kidney disease; I50.22 Chronic systolic (congestive) heart failure; E11.22 Type 2 diabetes mellitus with diabetic chronic kidney disease; N18.9 Chronic kidney disease, unspecified; E11.42 Type 2 diabetes mellitus with diabetic polyneuropathy; I25.10 Atherosclerotic heart disease of native coronary artery without angina pectoris; E78.00 Pure hypercholesterolemia, unspecified; X19.XXXA Contact with other heat and hot substances, initial encounter; Z85.51 Personal history of malignant neoplasm of bladder; Z79.84 Long term (current) use of oral hypoglycemic drugs; Z79.4 Long term (current) use of insulin; Z95.1 Presence of aortocoronary bypass graft; Z20.822 Contact with and (suspected) exposure to COVID-19
CPT/HCPCS: J1650

== ENCOUNTER 2023-09-20 15:31 | Emergency (ER) | payer OTHER, MEDICARE ==
[~2023-09-20] VITALS: Ht 182.9 cm; Wt 99.0 kg
[2023-09-20] VITALS (11 sets, daily range): BP systolic 122–155; BP diastolic 66–88
[~2023-09-20 15:31] MED LIST changes: +DOXYCYCLINE100 MG PO; +OZEMPIC2 MG SC
[2023-09-20 15:56] LABS: BASO% 0.2 % (0-3); EOS% 1.9 % (0-8); HEMATOCRIT 32.7 % (39.0-50.0); LYMPH% 25.4 % (15-41); MEAN CELL VOLUME 98.2 fL CALC (80.0-100.0); MEAN CORPUSCULAR HGB CONC 33.6 g/dL CAL (32.0-36.0); NEUT# 5.38 thou/uL (1.82-7.42); NEUT% 65.5 % (42-76); RED BLOOD COUNT 3.33 mill/uL (4.70-6.10); RED CELL DISTRI WIDTH 14.4 % (11.5-15.5)
[2023-09-20 16:13] LABS: ALKALINE PHOSPHATASE 127 u/l (38-126); ANION GAP 13 (6-22 (CALC)); BUN 26 mg/dL (8-23); BUN/CREATININE RATIO 18 (12-20 (CALC)); CALCULATED LDLCHOLESTEROL 59 mg/dL (62-129 (CALC)); CARBON DIOXIDE 25 mmol/l (22-30); CHLORIDE 108 mmol/l (95-108); CHOLESTEROL HDL RATIO 3.9 (<4.4 (CALC)); CREATININE 1.4 mg/dL (0.7-1.3); GFR FOR AFR.AMER. 60 ML/MIN (>=60 (CALC)); GFR OTHER RACES 49 ML/MIN (>=60 (CALC)); HDL CHOLESTEROL 33 mg/dL (39.0-59.0); POTASSIUM 3.6 mmol/l (3.5-5.1); SGOT/AST 41 u/l (19-48); SODIUM 141 mmol/l (137-146); TOTAL CHOLESTEROL 127 mg/dl (0-199); TOTAL TRIGLYCERIDES 179 mg/dl (0-149); VLDL CHOLESTROL 36 mg/dl (0-38 (CALC))
[2023-09-20 16:16] LABS: BILIRUBIN, TOTAL 0.5 mg/dL (0.2-1.3); TOTAL PROTEIN 6.7 g/dL (6.3-8.2)
[2023-09-20 16:17] LABS: INTERNATIONAL NORMALIZED RATIO 1.1 RATIO (0.7-1.3); PROTHROMBIN TIME 10.2 SECONDS (9.0-12.5)
[2023-09-20 16:40] LABS: URINE BILIRUBIN - DIPSTICK Negative (NEGATIVE); URINE BLOOD DIPSTICK Negative (NEGATIVE); URINE GLUCOSE - DIPSTICK Negative (NEGATIVE); URINE KETONE Negative (NEGATIVE); URINE LEUK ESTERASE Negative (NEGATIVE); URINE NITRITE - DIPSTICK Negative (Negative); URINE PROTEIN - DIPSTICK 100 mg/dL (NEG-TRACE); URINE SPECIFIC GRAVITY 1.015; URINE UROBILINOGEN - DIPSTICK 0.2 E.U./dL (0.2)
[2023-09-20 16:42] LABS: URINE COLOR Yellow
[2023-09-20 16:49] LABS: URINE HYALINE CAST RARE lpf (NONE-RARE); URINE SQUAMOUS EPITHELIAL CELL RARE EPI/hpf (0-FEW); URINE WBC 0-2 WBC/hpf (0-5)
== END 2023-09-20 18:12 | disposition home or self-care (01) | DRG 149 ==
LOC: ED 15:31
PROVIDERS: Family Medicine
DX: R42 Dizziness and giddiness (principal); I13.0 Hypertensive heart and chronic kidney disease with heart failure and stage 1 through stage 4 chronic kidney disease, or unspecified chronic kidney disease; C95.90 Leukemia, unspecified not having achieved remission; E11.22 Type 2 diabetes mellitus with diabetic chronic kidney disease; N18.9 Chronic kidney disease, unspecified; I50.9 Heart failure, unspecified; Z79.4 Long term (current) use of insulin
CPT/HCPCS: Q9967